=== PATIENT | female | born 1945 | race Caucasian/White ===

== ENCOUNTER → 2024-01-13 | Outpatient (REF) | payer MEDICARE ==
[2024-01-13 18:59] LABS: CREATININE, URINE 24.7 MG/DL; MALB URINE SIEMENS < 3.0 MG/L; MAU/CREAT RATIO 12.1 MCG/MG (0.0-30.0)
== END ==
LOC: M LAB REF 18:05
PROVIDERS: ATTEND Nurse Practitioner Family
DX: E10.65 Type 1 diabetes mellitus with hyperglycemia (principal)

== ENCOUNTER → 2024-09-09 | Outpatient (CLI) | payer MEDICARE ==
[2024-09-09 14:51] LABS: BASO % 0.6 % (0.0-1.0); EOS # 0.2 10^3/uL (0.0-0.5); EOS % 2.4 % (0.0-3.0); HEMATOCRIT 41.8 % (36.0-47.0); HEMOGLOBIN 12.4 g/dl (12.0-15.5); LYMPH # 1.3 10^3/uL (1.5-5.0); LYMPH % 18.4 % (24.0-44.0); MEAN CORPUSCULAR HEMOGLOBIN 23.6 pg (27.0-33.0); MEAN CORPUSCULAR HGB CONC 29.7 g/dl (32.0-36.5); MEAN CORPUSCULAR VOLUME 79.5 fl (80.0-96.0); MONO # 0.5 10^3/uL (0.0-0.8); MONO % 6.2 % (2.0-8.0); NEUTROPHILS # 5.2 10^3/uL (1.5-8.5); NEUTROPHILS % 72.3 % (36.0-66.0); PLATELET COUNT, AUTOMATED 350 10^3/uL (150-450); RED BLOOD COUNT 5.26 10^6/uL (4.00-5.40); WHITE BLOOD COUNT 7.2 10^3/uL (4.0-10.0)
== END ==
LOC: M PLALAB 11:25
PROVIDERS: ATTEND Internal Medicine Hematology
DX: D50.8 Other iron deficiency anemias (principal)

== ENCOUNTER 2024-09-27 10:07 | Outpatient (CLI) | payer MEDICARE ==
[~2024-09-27] VITALS: Ht 160 cm; Wt 61.4 kg
[~2024-09-27 10:07] MED LIST: ALBUTEROL SULFATE 2.5MG/0.5ML INH NEB SOLN INH PRN; EPINEPHrine INJ 1 MG/ML 1ML AMP IM PRN; NS 1,000 ML IV SCH; diphenhydrAMINE 50MG/ML VIAL IV PRN; methylPREDNISolone 125MG 2ML VIAL IV PRN
[2024-09-27] MEDS: IRON SUCROSE 300 MG in NS 250 ML OVER 90 MIN. IV ONE (11:17)
[2024-09-27 11:30] VITALS: BP 160/71; O2SAT 100
[2024-09-27 13:00] VITALS: BP 168/72; O2SAT 100
== END 2024-09-27 13:00 ==
LOC: M INFU 10:07
PROVIDERS: ATTEND Internal Medicine Hematology
DX: D50.9 Iron deficiency anemia, unspecified (principal)
CPT/HCPCS: 96365; 96366; J1756

== ENCOUNTER 2024-10-04 10:45 | Outpatient (CLI) | payer MEDICARE ==
[~2024-10-04] VITALS: Ht 160 cm; Wt 61.4 kg
[2024-10-04 10:45] VITALS: BP 150/70; O2SAT 100
[~2024-10-04 10:45] MED LIST changes: -NS 1,000 ML IV SCH
[2024-10-04] MEDS ORDERED: NS 1,000 ML IV SCH (11:00)
[2024-10-04] MEDS: IRON SUCROSE 300 MG in NS 250 ML OVER 90 MIN. IV ONE (11:30)
[2024-10-04 13:14] VITALS: BP 160/80; O2SAT 98
== END 2024-10-04 13:15 ==
LOC: M INFU 10:45
PROVIDERS: ATTEND Internal Medicine Hematology
DX: D50.9 Iron deficiency anemia, unspecified (principal)
CPT/HCPCS: 96365; 96366; J1756

== ENCOUNTER 2024-10-11 10:45 | Outpatient (CLI) | payer MEDICARE ==
[~2024-10-11] VITALS: Ht 160 cm; Wt 61.3 kg
[2024-10-11 10:45] VITALS: BP 156/79; O2SAT 96
[~2024-10-11 10:45] MED LIST changes: +NS 1,000 ML IV SCH
[2024-10-11] MEDS: IRON SUCROSE 300 MG in NS 250 ML IV ONE (11:04)
[2024-10-11 12:35] VITALS: BP 140/70; O2SAT 100
== END 2024-10-11 12:45 ==
LOC: M INFU 10:45
PROVIDERS: ATTEND Internal Medicine Hematology
DX: D50.9 Iron deficiency anemia, unspecified (principal)
CPT/HCPCS: 96365; 96366; J1756